=== PATIENT | male | born 2000 | race Caucasian/White ===

== ENCOUNTER 2024-08-22 09:30 | Outpatient (OUT) | payer OTHER, SELFPAY ==
[2024-08-22 10:51] LABS: Anion Gap 8.5; BUN Creatinine Ratio 13.2; Calcium 9.4 mg/dL (8.5-10.1); Carbon Dioxide 32.4 mmol/L (21.0-32.0); Chloride 102 mmol/L (98-107); Estimated GFR (African America >60 (>=60); Estimated GFR (Non-African Ame >60 (>=60); Glucose 89 mg/dL (74-106); Potassium 3.9 mmol/L (3.5-5.1); Sodium 139 mmol/L (136-145)
[2024-08-25 17:09] LABS: Levetiracetam (Keppra), S 40.8 ug/mL (10.0-40.0)
== END 2024-08-22 09:31 | disposition home or self-care (01) ==
LOC: LAB 09:35
PROVIDERS: PCP Nurse Practitioner Family; Visit Provider Nurse Practitioner Adult Health
DX: G40.409 Other generalized epilepsy and epileptic syndromes, not intractable, without status epilepticus (principal); Z51.81 Encounter for therapeutic drug level monitoring
CPT/HCPCS: 36415; 80048; 80177; 80235

== ENCOUNTER 2024-08-22 09:39 | Outpatient (OUT) | payer OTHER, SELFPAY ==
[2024-08-23 06:09] LABS: HBsAg Screen Negative (Negative); HCV Ab Non Reactive (Non Reactive); HIV Ab/p24 Ag Screen Non Reactive (Non Reactive); HSV 1 IgG, Type Spec <0.91 index (0.00-0.90); HSV 2 IgG, Type Spec <0.91 index (0.00-0.90); Hep A Ab, IgM Negative (Negative); Hep B Core Ab, IgM Negative (Negative)
[2024-08-23 10:08] LABS: Rapid Plasma Reagin, Quant Non Reactive titer (NonRea<1:1)
== END 2024-08-22 09:40 | disposition home or self-care (01) ==
LOC: LAB 09:40
PROVIDERS: PCP Nurse Practitioner Family; Visit Provider Nurse Practitioner Family
DX: G40.409 Other generalized epilepsy and epileptic syndromes, not intractable, without status epilepticus (principal); Z51.81 Encounter for therapeutic drug level monitoring; A64 Unspecified sexually transmitted disease
CPT/HCPCS: 36415; 80048; 80074; 80177; 80235; 86592; 86695; 86696; 87389

== ENCOUNTER 2025-06-03 15:41 | Outpatient (OUT) | payer OTHER, SELFPAY ==
--- OUTSIDE RECORDS SUMMARY | 2024-08-22 05:15 | XMS_ITS ---
Author Organization The [facility] in [place] Address [address] [place] [address] Care Team Providers Care Middle School Teacher Name Role Phone Natalya Menchaca Primary Care Provider Allergies No Known Allergies Results Component Value Reference Range Notes HSV 1 and 2-Spec Ab, IgG w/R fx Reviewed date:08/25/2024 09:53:05 AM Interpretation: Performing Lab: Notes/Report: [facility] , HSV 1 IgG, Type Spec <0.91 0.00-0.90 index Negative <0.91 Equivocal 0.91 - 1.09 Positive >1.09 Note: Negative indicates no antibodies detected to HSV-1. Equivocal may suggest early infection. If clinically appropriate, retest at later date. Positive indicates antibodies detected to HSV-1. Effective September 01, 2024 the reference interval will be changing to: Non Reactive. HSV 2 IgG, Type Spec <0.91 0.00-0.90 index Negative <0.91 Equivocal 0.91 - 1.09 Positive >1.09 HSV-2 Antibody Interpretation: Current guidelines and recommendations do not recommend routine screening for HSV-2 in asymptomatic individuals, including those that are . A negative antibody result indicates no detectable antibodies to HSV-2 were found. If recent exposure is suspected, retest in 4 to 6 weeks. Equivocal samples should be retested in 4 to 6 weeks. A positive result indicates the presence of detectable IgG antibody to HSV-2. FALSE POSITIVE RESULTS MAY OCCUR. Repeat testing, or testing by a different method, may be indicated in some settings (e.g. patients with low likelihood of HSV infection). If clinically appropriate, retest 4 to 6 weeks later. HSV-2 IgG antibody testing results should be clinically correlated. Effective September 01, 2024 the reference interval will be changing to: Non Reactive. Performing Lab: see note LC - [facility] LB REASON FOR VISIT STEM SHAPER TO EST--OK PER NURSE Medications Medication SIG (Take, Route, Frequency, Duration) Notes Start Date End Date Status Triamcinolone Acetonide 0.025 % 1 application Externally Once a day for 7 days 08/22/2024 Active levETIRAcetam 1000 MG 1 tablet on the to ngue and allow to dissolve Orally Twice a day Active Lacosamide 100 MG 1 tablet Orally Twic e a day Active Social History Tobacco Use: Social History Observation Description Date Details (start date - stop date) Never Smoker NA - NA Tobacco Control (Standard) Question Answer Notes Tobacco use: Nonsmoker AUDIT-C (Standard) Question Answer Notes Did you have a drink containing alcohol in the p ast year? No Points 0 Interpretation Negative Vital Signs Weight 133 lbs 08/22/2024 Height 71 in 08/22/2024 Blood pressure systolic 98 mm Hg 08/22/20 24 Blood pressure diastolic 64 mm Hg 024 BMI 18.55 kg/m2 08/22/2024 Encounters Encounter Location Date Provider Diagnosis [facility] [address] [place] [address] 08/22/2024 Natalya Menchaca STD (sexually transmitted disease) A64 Assessments Encounter Date Diagnosis (ICD Code) Assessment Notes Treatment Notes Treatment Clinical Notes Section Notes 08/22/2024 STD (sexually transmitted disease) (ICD-10 - A64) Plan Of Treatment Medication Medication Name Sig Start Date Stop Date Notes Triamcinolone Acetonide 0.02 5 % 1 application Externally Once a day for 7 days 08/22/2024 Pending Test Test Name Order Date HEPATITIS PANEL, ACUTE 08/22/2024 HIV 1 AND 2 WITH REFLEX 08/22/2024 RPR QUANT 08/22/2024 Next Appt Details Follow Up: prn, Reason: Progress Notes * Puma CORBETTDOB:2000 (24 yo M)Acc No.[id number]:08/22/2024 New Patient Patient: Puma BROWN Provider: Danni Menchaca ([facility] SHERIFF :2000 A ge:24 Y S ex:Male Date:08/22/2024 Address:[address] [place] Check In:08:48 AM ESTCheck O ut:09:20 AM EST Subjective: * Chief Complaints: * 1 . STEM SHAPER TO EST--OK PER NURSE. * HPI: D epression Screening: PHQ-2 (2015 Edition) L ittle interest or pleasure in doing things??Not at all F eeling down, depressed, or hopeless? N ot at all T otal Score 0 G eneral: [place] , neurology 3 spots on penis, 4 months ago, not getting any bigger UC did urine test, no blood test, told negative some depression, battling addiction 6 years, little everything, cocaine, LSD, mushrooms, adderall, xanax not many opiates, no alcohol smokes weed right now, works at [employer], lives with grandma. * ROS: G eneral/Constitutional: Fever d enies. H eadache d enies. W eight loss?denies. O phthalmologic: Discharge d enies. E ye Pain d enies. I tching and redness d enies. E NT: Nasal discharge d enies. N uche congestion d enies.?Sore throat d enies. C ardiovascular: Chest tightness/ heavy pressure d enies. R apid heart rate d enies. S welling of extremities d enies. C hest pain d enies. ? R espiratory: Productive cough d enies. C hest pain d enies. C ough d enies. S hortness of breath d enies. W heezing d enies. ? G astrointestinal: Abdominal pain d enies. C onstipation d enies. D ecreased appetite d enies. D iarrhea d enies. N ausea d enies. V omiting?denies. G enitourinary: Urinary incontinence d enies. P ainful urination d enies. M usculoskeletal: Back pain d enies. N yvette pain d enies. M uscle aches d enies. S kin: Patient complaining of 3 red spots on penis. R niharika?denies. S kin lesion(s) d enies. * Active Problem List ?Problem List has not been verified* Medical History: M edical History Verified. * Family History: F ather: alive. M other: , diagnosed with Other malignant neoplasm of unspecified site. B rother(s): alive. 2 brother(s) . . * Social History: T obacco Use: T obacco Control (Standard) T obacco use: N onsmoker D rug/Alcohol: A DIMITRI-C (Standard) D id you have a drink containing alcohol in the past year? N o P oints 0 I nterpretation N egative D rugs/Alcohol: M edical Marijuana D o you have a medical marijuana card? N o W hat intake method do you use? S moking * Medications: T aking Lacosamide 100 MG Tablet 1 tablet Orally Twice a day , Taking levETIRAcetam 1000 MG Tablet Disintegrating Soluble 1 tablet on the tongue and allow to dissolve Orally Twice a day , Medication List reviewed and reconciled with the patient * Allergies: N .K.D.A. Objective: * Vitals: W t:133lbs, Ht: 71 in, BP:98/64mm Hg, BMI:18.55Index, Ht-cm: 180.34 cm, Wt-k.33 kg. * Examination: G eneral Examinations: GENERAL APPEARANCE: a lert and oriented, i n no acute distress. EYES: c onjunctiva normal, sclera non-icteric. NOSE: n ormal external appearance. LUNGS: c lear to auscultation bilaterally. CARDIO: r egular rate and rhythm, S1, S2 normal. ABDOMEN: s oft, nontender. MUSCULOSKELETAL G ait and station normal. SKIN: w arm and dry, 3 small macular spots on penis, appear little dry, scaley, red. Assessment: * Assessment: 1. S TD (sexually transmitted disease) - A64 (Primary) Plan: * Treatment: * Labs: * L ab: HSV 1 and 2-Spec Ab, IgG w/Rfx (Collection Date & Time - 08/22/2024 09:53 AM) * Preventive Medicine: Screenings/Counseling: B LA ACTION PLAN Below Normal BMI Follow-up D ietary management education, guidance, and counseling * Follow Up: p rn * * Sign off status: Completed Visit Status: C HK (Check Out) true * Provider: Danni Menchaca ([facility] SHERIFF Date: 0 08/22/2024 Generated for ConstantinoSABIA ng/Fananig/eTransmitting on: 0 06/03/2025 03:52 PM EDT History and Physical Notes * HPI (History of Present Illness) Category Sub-Category Detail Notes Category Not es General [place] , neurology 3 spots on penis, 4 months ago, not getting any bigger UC did urine test, no blood test, told negative some depression, battling addiction 6 years, little everything, cocaine, LSD, mushrooms, adderall, xanax not many opiates, no alcohol smokes weed right now, works at [employer], [facility] Depression Screening PHQ-2 (2015 Edition) Little interest or pleasure in doing things?: Not at all Feeling down, depressed, or hopeless?: N ot at all Total Score: 0 Examination Category Sub-Category Detail Notes Category Not es General Examinations GENERAL APPEARANCE: alert a nd oriented, in no acute distress EYES: conjunctiva normal, sclera non-icteric EARS: NOSE: normal external appe arance THROAT: CARDIO: regular rate and rhy thm, S1, S2 normal LUNGS: clear to auscultatio n bilaterally ABDOMEN: soft, nontender SKIN: warm and dry, 3 smal l macular spots on penis, appear little dry, scaley, red BACK: MUSCULOSKELETAL: Gait and station nor mal LYMPH NODES:
--- OUTSIDE RECORDS SUMMARY | 2024-08-25 05:52 | XMS_ITS ---
Author Organization [facility] in [place] Address [address] [place] [address] Care Team Providers Care Manager Of Creative Services Name Role Phone Natalya Menchaca Primary Care Provider [phone] REASON FOR VISIT Testing Results Encounters Encounter Location Date Provider Diagnosis [facility] [address] [place] [address] 08/25/2024 Natalya Menchaca Plan Of Treatment No Information Progress Notes * Puma CORBETTDOB:2000 (24 yo M)Acc No.[id number]:08/25/2024 Patient: Puma BROWN :2000 A ge:24 Y S ex:Male Address:[address] [place] [address], [place], [address] * true * Date: Generated for Constantinoi aisha/Gurdeepg/eTransmitting on: 0 06/03/2025 03:52 PM EDT
--- OUTSIDE RECORDS SUMMARY | 2025-06-03 15:52 | XMS_ITS | Clinical Summary ---
Author Organization [facility] Address [address] [place] [address] Care Team Providers Care Crts Name Role Phone Unavailable Primary Care Provider Unavailabl e Allergies No known active allergies Medications mupirocin (Bactroban) 2 % ointment APPLY TO AFFECTED AREA 3 TIMES DAILY FOR 10 DAYS 06/11/2024 Active levETIRAcetam (Keppra) 1000 MG tabletIndicatio ns:Generalized tonic-clonic seizure (HCC) Take 1 tablet (1,000 mg) by mouth in the morning and 1 tablet (1,000 mg) before bedtime. 60 tablet 3 04/07/2025 Active lacosamide (Vimpat) 100 MG tabletIndicatio ns:Generalized tonic-clonic seizure (HCC) Take 1 tablet (100 mg) by mouth in the morning and 1 tablet (100 mg) before bedtime. 60 tablet 1 04/07/2025 Active Active Problems Problem Noted Date Diagnosed Date Epilepsy 05/02/2021 Breakthrough seizure 05/02/2021 Generalized tonic-clonic seizure 05/02/2021 Localization-related (focal) (partial) symptomatic epilepsy and epileptic syndromes with complex partial seizures, not intractable, without status epilepticus 12/27/2020 Marijuana abuse 10/01/2020 Encounters Date Type Department Care Team Description 04/07/2025 11:20 AM EDT Office Visit [facility] [address] [place] [address] Nichelle Silverman PA Generalized tonic-clonic seizure (HCC) (Primary Dx); Medication monitoring encounter 04/07/2025 Telephone [facility] [address] [place] [address] Carla Alexander MA license suspension 04/07/2025 Bamboo flowsheet [facility] [address] [place] [address] Nichelle Silverman PA 04/07/2025 Travel 03/17/2025 Refill [facility] [address] [place] [address] Jina Mederos PA Nonintractable generalized idiopathic epilepsy without status epilepticus (HCC); Generalized tonic-clonic seizure (HCC) from Last 3 Months Social History Tobacco Use Types Packs/Day Years Used Date Smoking Tobacco: Never Assessed Sex and Gender Information Value Date Recorded Sex Assigned at Not on file Legal Sex Male 7:08 PM EDT Gender Identity Not on file Sexual Orientation Not on file Last Filed Vital Signs Vital Sign Reading Time Taken Comments Blood Pressure 118/72 04/07/2025 11:15 AM EDT Pulse 71 04/07/2025 11:15 AM EDT Temperature - - Respiratory Rate 16 04/07/2025 11:15 AM EDT Oxygen Saturation 96% 04/07/2025 11:15 AM EDT Inhaled Oxygen Concentration - - Weight 64.9 kg (143 lb) 04/07/2025 11:15 AM EDT Height 177.8 cm (5' 10 ) 04/07/2025 11:15 AM EDT Body Mass Index 20.52 04/07/2025 11:15 AM EDT Plan of Treatment Not on file Insurance [employer]
--- OUTSIDE RECORDS SUMMARY | 2025-06-03 15:52 | XMS_ITS | Patient Health Record ---
Author Organization [facility] Address [address] [place] [address] Care Team Providers Care Gis Administrator Name Role Phone Alisa Baumann Primary Care Provider [phone] Allergies No Known Allergies Reason For Referral No Information Medications Medication SIG (Take, Route, Fr equency, Duration) Notes Start Date End Date Status Atomoxetine HCl 80 MG 1 capsule Orally O nce a day; Duration: 14 days Active Keppra 1000 MG 1 tablet Orally every 12 hrs Active Social History Tobacco Use: Social History Observation Description Date Details (start date - stop date) Never Smoker NA - NA Tobacco Screen: Question Answer Notes Are you a: never smoker Alcohol Screening: Question Answer Notes Did you have a drink containing alcohol in the p ast year? No Points 0 Interpretation Negative Problems Problem Type SNOMED Code ICD Code Onset Dates Problem Status W/U Status Risk Notes Problem Attention defici t hyperactivity disorder (ADHD), unspecified ADHD type (F90.9) Active confirmed Plan Of Treatment No Information Insurance Providers Payer Name Payer Address Payer Phone Subscriber Number Group Number Insured Name Patient Relationship to Insured Coverage Start Date Coverage End Date ANTHEM Primary [address] [place] [phone] [id number] GENIA CORBETT Self - patient is the insured 2 Medical (General) History Medical History History ICD Code SEIZURES ADHD Substance abuse- cocaine, xanax, alcohol Hospitalization History Reason Date(Month/Year) SEIZURES 11/2021
--- OUTSIDE RECORDS SUMMARY | 2025-06-03 15:52 | XMS_ITS | Patient Health Record ---
Author Organization [facility] in [place] Address [address] [place] [address] Care Team Providers Care Interactive Project Manager Name Role Phone Natalya Menchaca Primary Care Provider Allergies No Known Allergies Results Component Value Reference Range Notes HIV Ab/p24 Ag with Reflex Reviewed date:08/25/2024 09:53:05 AM Interpretation: Performing Lab: Notes/Report: [facility] , HIV Ab/p24 Ag Screen Non Reactive Non Reactive HIV Negative Launching Pad Mechanic: Og Albarado PhD, Phone: [phone] HIV-1/HIV-2 antibodies and HIV-1 p24 antigen were NOT Performed at: [address] [phone] detected. There is no laboratory evidence of HIV infection. Performing Lab: see note [facility] LB Rapid Plasma Reagin, Quant Reviewed date:08/25/2024 09:53:05 AM Interpretation: Performing Lab: Notes/Report: [facility] , Rapid Plasma Reagin, Quant Non Reactive NonRea<1:1 tit er screening and diagnosis of syphilis. This test is (441979). Rapid Plasma Reagin (RPR) Test With Reflex to Quantitative [address] [place] [phone] intended for following treatment response in patients being RPR and Confirmatory Treponema pallidum Antibodies Treponema pallidum (Syphilis) Screening [place] (871976) or Launching Pad Mechanic: Og Albarado PhD, Phone: [phone] treponema-specific assay should be utilized, such as Please Note: This test does not meet current guidelines for Performed at: [facility] treated for syphilis infection. To screen for syphilis infection, a reflex cascade that includes both RPR and a [facility] Hepatitis Reviewed date:08/25/2024 09:53:05 AM Interpretation: Performing Lab: Notes/Report: [facility] , Hep A Ab, IgM Negative Negative A negative anti-HAV IgM result suggests no recent or current HAV infection. HBsAg Screen Negative Negative Hep B Core Ab, IgM Negative Negative HCV Ab Non Reactive Non Reactive Interpretation: Comment . Not infected with HCV unless early or acute infection is suspected (which may be delayed in an immunocompromised infection. individual), or other evidence exists to indicate HCV Performing Lab: see note [facility] Lacosamide Reviewed date:08/28/2024 09:03:55 AM Interpretation: Performing Lab: Notes/Report: [facility] , Lacosamide 5.3 5.0-10.0 ug/mL Mean plasma concentrations following maintenance dose 600 mg/day 12.46 +/- 5.60 ug/mL 400 mg/day 9.35 +/- 4.22 ug/mL Performed at: [facility] determined by [facility]. It has not been cleared or This test was developed and its performance characteristics 200 mg/day 4.99 +/- 2.51 ug/mL Launching Pad Mechanic: Cornelius Schwartz MD, Phone: [phone] Limit of Detection 0.5 [facility] [place], [place] [id number] approved by the Food and Drug Administration. Performing Lab: see note [facility] Levetiracetam (Keppra), S Reviewed date:08/28/2024 09:03:55 AM Interpretation: Performing Lab: Notes/Report: [facility] , Levetiracetam (Keppra), S 40.8 10.0-40.0 ug/mL Performed at: [facility] Launching Pad Mechanic: Cornelius Schwartz MD, Phone: [phone] [address] [place], [place] [id number] Performing Lab: see note [facility] PROF CHEM 8 (BAS METB) Reviewed date:08/25/2024 09:53:06 AM Interpretation: Performing Lab: Notes/Report: [facility] , Sodium 139 136-145 mmol/L Potassium 3.9 3.5-5.1 mmol/L Chloride 102 98-107 mmol/L Carbon Dioxide 32.4 21.0-32.0 mmol/L Anion Gap 8.5 Glucose 89 74-106 mg/dL Blood Urea Nitrogen 14.0 7.0-18.0 mg/dL Creatinine 1.06 0.70-1.30 mg/dL Estimated GFR ( Ev >60 >=60 Estimated GFR (Non- Malika >60 >=60 BUN Creatinine Ratio 13.2 Calcium 9.4 8.5-10.1 mg/dL Performing Lab: see note - [facility] LB HSV 1 and 2-Spec Ab, IgG w/R fx Reviewed date:08/25/2024 09:53:05 AM Interpretation: Performing Lab: Notes/Report: [facility] , HSV 1 IgG, Type Spec <0.91 0.00-0.90 index Note: Negative indicates no antibodies detected to HSV-1. Equivocal may suggest early infection. If Equivocal 0.91 - 1.09 Effective September 01, 2024 the reference interval Positive >1.09 will be changing to: Non Reactive. indicates antibodies detected to HSV-1. clinically appropriate, retest at later date. Positive Negative <0.91 HSV 2 IgG, Type Spec <0.91 0.00-0.90 index recommendations do not recommend routine screening for HSV-2 in asymptomatic individuals, including testing by a different method, may be indicated in to 6 weeks later. HSV-2 IgG antibody testing results Positive >1.09 4 to 6 weeks. A positive result indicates the Negative <0.91 presence of detectable IgG antibody to HSV-2. should be clinically correlated. some settings (e.g. patients with low likelihood of to 6 weeks. Equivocal samples should be retested in HSV infection). If clinically appropriate, retest 4 found. If recent exposure is suspected, retest in 4 HSV-2 Antibody Interpretation: Current guidelines and those that are . A negative antibody result FALSE POSITIVE RESULTS MAY OCCUR. Repeat testing, or indicates no detectable antibodies to HSV-2 were Effective September 01, 2024 the reference interval will be changing to: Non Reactive. Equivocal 0.91 - 1.09 Performing Lab: see note LC - [facility] Reason For Referral No Information Medications Medication SIG (Take, Route, Frequency, Duration) [...] No Points 0 Interpretation Negative Vital Signs Blood pressure diastolic 64 mm Hg 08/22/2024 Height 71 in 08/22/2024 Blood pressure systolic 98 mm Hg 08/22/2024 Weight 133 lbs 08/22/2024 BMI 18.55 kg/m2 08/22/2024 Encounters Encounter Location Date Provider Diagnosis [id number] [place] [address] 08/22/2024 Natalya Menchaca STD (sexually transmitted disease) A64 [address] [place] [address] 08/25/2024 Natalya Menchaca Assessments Encounter Date Diagnosis (ICD Code) Assessment Notes Treatment Notes Treatment Clinical Notes Section Notes 08/22/2024 STD (sexually transmitted disease) (ICD-10 - A64) Plan Of Treatment Pending Test Test Name Order Date HEPATITIS PANEL, ACUTE 08/22/2024 HIV 1 AND 2 WITH REFLEX 08/22/2024 RPR QUANT 08/22/2024 Insurance Providers Payer Name Payer Address Payer Phone Subscriber Number Group Number Insured Name Patient Relationship to Insured Coverage Start Date Coverage End Date [employer] [place] [employer] [address] [place] [address] [id number] Puma Kent Self - patient is the insured
--- OUTSIDE RECORDS SUMMARY | 2025-06-03 15:52 | XMS_ITS | Clinical Summary ---
Author Organization [facility] Address [address] [place] [address] Care Team Providers Care Dewaterer Operator Name Role Phone Unavailable Primary Care Provider Unavailabl e Social History Tobacco Use Types Packs/Day Years Used Date Smoking Tobacco: Never Assessed Sex and Gender Information Value Date Recorded Sex Assigned at Not on file Legal Sex Male 10:29 PM EST Gender Identity Not on file Sexual Orientation Not on file Plan of Treatment Not on file
[2025-06-08 04:10] LABS: Levetiracetam (Keppra), S 28.0 ug/mL (10.0-40.0)
== END 2025-06-03 15:42 | disposition home or self-care (01) ==
LOC: LAB 15:49
PROVIDERS: PCP Nurse Practitioner Family; Visit Provider Physician Assistant
DX: G40.409 Other generalized epilepsy and epileptic syndromes, not intractable, without status epilepticus (principal); Z51.81 Encounter for therapeutic drug level monitoring
CPT/HCPCS: 36415; 80177; 80235